=== PATIENT | male | born 1960 | race Caucasian/White ===

== ENCOUNTER 2018-03-31 06:50 | Emergency (ER) | payer OTHER, MEDICAID ==
[~2018-03-31] VITALS: Ht 175.3 cm; Wt 109.3 kg
[2018-03-31 06:59] VITALS: BP 139/76
--- NOTE | 2018-03-31 06:59 | NUR ---
TO BED # 9 AMBULATORY
--- NOTE | 2018-03-31 07:12 | NUR ---
PT. ARRIVED TO ED DUE TO A RASH ON L HIP X 3 MONTHS. PT. STATES " IT STARTED AFTER I TOOK A HOT SHOWER AT MY BOARDING C[employer]. PT. C/O ITCHYNESS X 3 MONTHS WITH "RASH HAS SPREAD TO MY STOMACH". DENIES ANY SOB, OR DIFFICULTY BREATHING. ER MD MADE AWARE. WILL CONTINUE TO MONITOR.SAFETY PRECAUTIONS IN PLACE.
--- NOTE | 2018-03-31 07:18 | NUR ---
Note morales in [facility] - 03/31/18 at 0728 by BETTY RECEIVED REPORT FROM GARCÍA CAZARES. Addendum: 03/31/18 at 0724 by BETTY Sherri nielsen in [facility] - 03/31/18 at 0725 by [email or web address] PT C/O ABD PAIN 06/26 & N/V. NOTIFIED DR JOYA
[2018-03-31 07:40] VITALS: BP 130/78
--- NOTE | 2018-03-31 07:40 | NUR ---
Patient discharged with v/s stable. Written and verbal after care instructions given and explained. Patient alert, oriented and verbalized understanding of instructions. Ambulatory with steady gait. All questions addressed prior to discharge. ID band removed. Patient advised to follow up with PMD. Rx of FLUOCINOLONE, ELIMITE 5% TOPICAL CREAM, CLARITIN given. Patient educated on indication of medication including possible reaction and side effects. Opportunity to ask questions provided and answered.
== END 2018-03-31 07:40 | disposition home or self-care (01) ==
LOC: MED 06:50
DX: L29.9 Pruritus, unspecified (principal); R03.0 Elevated blood-pressure reading, without diagnosis of hypertension
CPT/HCPCS: 99282

== ENCOUNTER 2018-06-11 06:04 | Emergency (ER) | payer OTHER, MEDICAID ==
[~2018-06-11] VITALS: Ht 180.3 cm; Wt 103.9 kg
[2018-06-11 06:11] VITALS: BP 143/71
--- NOTE | 2018-06-11 06:11 | NUR ---
PT AMBULATED TO ER BED 1
[2018-06-11] MEDS ORDERED: BACITRACIN OINT 500 UNITS/GM PKT TP ONE (06:25)
--- NOTE | 2018-06-11 06:26 | NUR ---
58 YO M PRESENTS TO ED C/O SKIN TEAR TO MEDIAL POSTERIOR HEAD S/P FALL IN SHOWER 24 HOURS AGO. PT DENIES LOC, ALOC, NVD. NO ACTIVE BLEEDING AT THIS TIME. VSS. NO APPARENT DISTRESS AT THIS TIME. SKIN PINK, DRY, WARM. BREATHING EVEN, UNLABORED. PMH-- DM, HTN, ANXIETY, DEPRESSION PT POSITIONED FOR COMFORT. HOB ELEVATED. SIDE RAIL UP X 1. BED IN LOWEST POSITION.
--- NOTE | 2018-06-11 06:35 | NUR ---
CLEANSED SKIN TEAR ON L PARIETAL WITH NS GAUZE, PAT DRY, APPLIED BACITRACIN OINTMENT, COVERED WITH BANDAID. PT TOLERATED WELL.
--- NOTE | 2018-06-11 06:36 | NUR ---
Patient discharged with v/s stable. Written and verbal after care instructions given and explained. Patient alert, oriented and verbalized understanding of instructions. Ambulatory with steady gait. All questions addressed prior to discharge. ID band removed. Patient advised to follow up with PMD. Rx of Neosporin given. Patient educated on indication of medication including possible reaction and side effects. Opportunity to ask questions provided and answered.
[2018-06-11 06:39] VITALS: BP 143/71
== END 2018-06-11 06:36 | disposition home or self-care (01) ==
LOC: MED 06:04
DX: S01.01XA Laceration without foreign body of scalp, initial encounter (principal); W26.8XXA Contact with other sharp object(s), not elsewhere classified, initial encounter; Y93.E1 Activity, personal bathing and showering; Y92.89 Other specified places as the place of occurrence of the external cause; Y99.8 Other external cause status
CPT/HCPCS: 99282